=== PATIENT | female | born 1970 ===

== ENCOUNTER → 2016-11-14 | Outpatient (REF) ==
[~2016-11-14] MED LIST: DIFLUCAN 100MG100 MG PO; GEODON 40MG40 MG PO; KLONOPIN 0.5MG0.5 MG PO; LITHIUM 30300 MG/CAP PO; LUNESTA2 MG PO; NORCO 325 MG-51 TAB PO; OMNICEF 300MG300 MG PO; PROAIR HFA0.09 MG/AC IH; VIIBRYD20 MG PO
== END ==
LOC: ZLAB.WCH 14:56
DX: Z01.89 Encounter for other specified special examinations (principal)

== ENCOUNTER → 2017-06-16 | Outpatient (REF) ==
[2017-06-16 11:02] LABS: LITHIUM 0.6 mmol/L (0.6-1.2)
[2017-06-16 11:29] LABS: THYROID STIMULATING HORMONE 3.85 uIU/mL (0.465-4.680)
== END ==
LOC: ZLAB.WCH 10:33
PROVIDERS: Psychiatry & Neurology Psychiatry
DX: Z01.89 Encounter for other specified special examinations (principal)

== ENCOUNTER → 2017-06-21 | Outpatient (REF) | LOC: ZLAB.WCH 17:59 → ZCOL.LAB 17:59 | DX: Z01.89 Encounter for other specified special examinations (principal) ==

== ENCOUNTER → 2017-10-27 | Outpatient (REF) | LOC: ZLAB.WCH 19:14 | DX: Z01.89 Encounter for other specified special examinations (principal) ==

== ENCOUNTER → 2017-12-20 | Outpatient (REF) ==
[2017-12-20 18:47] LABS: THYROID STIMULATING HORMONE 3.9 uIU/mL (0.465-4.680)
== END ==
LOC: ZLAB.WCH 18:03
PROVIDERS: Nurse Practitioner Family
DX: Z01.89 Encounter for other specified special examinations (principal)

== ENCOUNTER → 2018-03-28 | Outpatient (REF) | LOC: ZLAB.WCH 15:55 | DX: Z01.89 Encounter for other specified special examinations (principal) ==

== ENCOUNTER → 2018-07-20 | Outpatient (REF) | LOC: ZLAB.WCH 15:49 | DX: Z01.89 Encounter for other specified special examinations (principal) ==

== ENCOUNTER → 2018-07-24 | Outpatient (REF) ==
[2018-07-24 09:51] LABS: THYROID STIMULATING HORMONE 3.05 uIU/mL (0.465-4.680)
== END ==
LOC: ZLAB.WCH 08:43
PROVIDERS: Psychiatry & Neurology Psychiatry
DX: Z01.89 Encounter for other specified special examinations (principal)

== ENCOUNTER → 2019-01-04 | Outpatient (REF) | LOC: ZLAB.WCH 15:47 | DX: Z01.89 Encounter for other specified special examinations (principal) ==

== ENCOUNTER → 2020-08-07 | Outpatient (CLI) | payer MEDICARE | LOC: COL.PUL 07-28 11:20 | DX: J44.9 Chronic obstructive pulmonary disease, unspecified (principal) ==

== ENCOUNTER → 2020-11-25 | Outpatient (REF) | LOC: ZLAB.WCH 17:04 | DX: Z01.89 Encounter for other specified special examinations (principal) ==

== ENCOUNTER 2021-03-07 17:43 | Inpatient (IN) | payer MEDICARE ==
[~2021-03-07] VITALS: Ht 175.3 cm; Wt 133.5 kg
[2021-03-07] VITALS (116 sets, daily range): BP systolic 155; BP diastolic 71; PULSE 104; TEMP 98.4; O2SAT 94–100
--- NOTE | 2021-03-07 18:00 | NUR ---
RECEIVED REPORT FROM LESLEY ZUNIGA IN [facility]. AWAITING ARRIVAL TO ICU 4.
--- NOTE | 2021-03-07 18:45 | NUR ---
PT ARRIVES WITH EMS BY STRETCHER TO ICU 4. PT AMBULATES SELF TO BATHROOM THEN TO ICU BED INDEPENDTLY. PLACED ON BEDSIDE CONTINUOUS MONITOR. VSS. CALL LIGHT WITHIN REACH. PT ON RA. DENIES ANY PAIN OR SHOB.
--- NOTE | 2021-03-07 19:05 | NUR ---
ELLIOT PANG AT BEDSIDE FOR ASSESSMENT.
[2021-03-07] MEDS ORDERED: LYRICA300 MG PO (19:39)
[2021-03-07] MEDS ORDERED: PRILOSEC 20MG20 MG PO (19:39)
[2021-03-07] MEDS ORDERED: WELLBUTRIN XL300 M1 PO (19:40)
[2021-03-07] MEDS ORDERED: WELLBUTRIN XL150 MG PO (19:40)
[2021-03-07] MEDS ORDERED: TOPAMAX 100MG100 M1 PO (19:40)
[2021-03-07] MEDS ORDERED: FLEXERIL 1010 MG/TAB PO (19:40)
[2021-03-07] MEDS ORDERED: 00186-0370-20 IH (19:40)
[2021-03-07] MEDS ORDERED: ELAVIL100 MG PO (19:41)
[2021-03-07] MEDS ORDERED: XANAX 1MG1 MG PO (19:42)
[2021-03-07] MEDS ORDERED: DITROPAN 5MG TAB5 MG PO (19:42)
[2021-03-07] MEDS ORDERED: DIPROLENE AF GEL15GM TP (19:43)
[2021-03-07] MEDS ORDERED: MOBIC15 MG PO (19:43)
[2021-03-07 20:18] LABS: COLLECTION METHOD CLEAN CATCH
[2021-03-07 20:24] LABS: PH 7 (5-8); SQUAMOUS EPITHELIAL 0-2 /hpf; URINE APPEARANCE Clear; URINE BACTERIA Rare /hpf; URINE BILIRUBIN Negative (NEGATIVE); URINE BLOOD Negative (NEGATIVE); URINE COLOR Yellow; URINE GLUCOSE 3+ (NEGATIVE); URINE KETONE Negative (NEGATIVE); URINE LEUKOCYTE ESTERASE Negative (NEGATIVE); URINE NITRATE Negative (NEGATIVE); URINE PROTEIN(semi-quant) Negative (NEGATIVE); URINE RBC 0-2 /hpf; URINE UROBILINOGEN Negative (NEGATIVE)
[2021-03-07 20:34] LABS: CALCIUM 8.7 mg/dL (8.4-10.2); CREATININE, serum 0.78 (0.52-1.25); POTASSIUM 4.2 mmol/L (3.4-5.0)
--- NOTE | 2021-03-07 21:00 | NUR ---
Assessment complete and charted. Denies needs. Orientated to ICU. All questions answered. Call light in reach.
[2021-03-07 23:48] LABS: CALCIUM 8.6 mg/dL (8.4-10.2); CREATININE, serum 0.66 (0.52-1.25); POTASSIUM 3.6 mmol/L (3.4-5.0)
[2021-03-08] VITALS (257 sets, daily range): BP systolic 108–146; BP diastolic 54–100; PULSE 84–105; TEMP 97.6–98.6; O2SAT 92–100
--- NOTE | 2021-03-08 | NUR ---
Resting in bed. Denies needs. Call light in reach.
[2021-03-08 03:53] LABS: BASO % 0.5 % (0.0-2.0); EOS # 0.2 (0.0-0.7); EOS % 3.3 % (0-4.0); GRAN # 3.2 (1.4-6.5); HEMATOCRIT 37.2 % (37.0-47.0); HEMOGLOBIN 11.8 g/dl (12.5-16.0); LYMPH # 1.8 (1.2-3.4); LYMPH % 29.7 % (20.0-51.0); MEAN CELL VOLUME 86 fl (80.0-100.0); MEAN CORPUSCULAR HEMOGLOBIN 27 pg (27.0-31.0); MEAN CORPUSCULAR HGB CONC 32 g/dl (33.0-37.0); MEAN PLATELET VOLUME 9.6 fl (7.4-10.4); MONO # 0.8 (0.1-0.6); MONO % 13.2 % (1.7-9.3); PLATELET COUNT 176 K/mm3 (130-400); RED BLOOD COUNT 4.31 M/mm3 (4.10-5.30); REDCELL DISTRIBUTION WIDTH-CV 17.2 % (11.5-14.5)
[2021-03-08 04:08] LABS: CALCIUM 8.3 mg/dL (8.4-10.2); CREATININE, serum 0.69 (0.52-1.25); POTASSIUM 3.9 mmol/L (3.4-5.0)
--- NOTE | 2021-03-08 07:00 | NUR ---
RECEIVED REPORT FROM LESLEY BRADSHAW. PT UP TO TOILET INDEPENDENTLY. BACK TO BED. VSS. CALL LIGHT WITHIN REACH.
[2021-03-08 07:19] LABS: CALCIUM 8.5 mg/dL (8.4-10.2); CREATININE, serum 0.64 (0.52-1.25); POTASSIUM 3.4 mmol/L (3.4-5.0)
--- NOTE | 2021-03-08 07:26 | NUR ---
Patient had uneventful night. Resting in bed this AM. Call light in reach.
--- NOTE | 2021-03-08 07:27 | NUR ---
Report given to LESLEY Jarrell
--- NOTE | 2021-03-08 09:14 | NUR ---
Initial visit; Patient thanked Steel Manager for looking in on her and offering encouragement and prayer.
--- NOTE | 2021-03-08 10:55 | NUR ---
Log Stacker Operator attended clinical rounds with the team and patient to transfer to the floor. SW met with patient to discuss discharge planning. Patient lives in [place] with her eighteen year old daughter, Rola. Patient sees Dr. Roman for primary care and obtains medications from [place] [facility]. Patient states she normally can afford her medications but is concerned about purchasing a blood glucose monitor and discharge medications. Patient has a cane she uses as needed as well as a shower chair. Patient advised she is independent with ADLS and plans to return home upon discharge. Patient does not have Advance Directives and did not want to designate DPOA-HC at this time. Patient's legal next of kin would be her daughter, Rola as patient is not . Patient also has her father, David (ph#[phone]) listed as a contact. SW consulted Marisa, Financial Counselor to inquire if patient would qualify for Medicaid. Discharge Plan: Home, may need medication assistance.
--- NOTE | 2021-03-08 10:59 | NUR ---
REPORT GIVEN TO LESLEY LEY ON [facility]. PT TO TRANSFER TO [facility] VIA ON RA. ALL PERSONAL BELONGINGS SENT WITH PT.
--- NOTE | 2021-03-08 14:00 | NUR ---
Pt arrived to floor at this time with ICU staff. In bed resting, denies needs, will continue to monitor.
--- NOTE | 2021-03-08 18:02 | NUR ---
Pt has done well since arriving to floor. REsted off and on this afternoon. PRN order received for Imitrex per pt request for migraine headache. Education provided in printed format on ADA diet, DM2 care and monitoring and Sliding Scale insulin regminens. Pt educated and demonstration provided for accuchecks and administering insulin. IVF to LA/C. Will give bedside shift erport to nightshift nurse who will resume care.
--- NOTE | 2021-03-08 22:46 | NUR ---
Patient laying in bed upon enter the room. Patient A/Ox4. Patient denies any pain or discomfort. Denies SOB, dyspnea, N/V, dizziness, or headache. Patient states that she is feeling very tired today. IVF running per MAR. All scheduled meds given per MAR. Call light within reach. Patient denies any needs at this time.
[2021-03-09 00:09] VITALS: BP 133/78; PULSE 101; TEMP 98.5
[2021-03-09 03:54] VITALS: BP 134/81; PULSE 96; TEMP 98.8
--- NOTE | 2021-03-09 07:10 | NUR ---
Bedside report recieved from LESLEY Jiménez. Patient resting in bed at this time. Lab in to draw blood. NS running as ordered. Patient denies any pain, discomfort, or futher needs at this time. Will continue to monitor. Call light in reach.
[2021-03-09 07:47] LABS: CALCIUM 8.6 mg/dL (8.4-10.2); CREATININE, serum 0.68 (0.52-1.25); POTASSIUM 3.5 mmol/L (3.4-5.0)
[2021-03-09 08:19] VITALS: BP 119/73; PULSE 105; TEMP 97.8
--- NOTE | 2021-03-09 10:00 | NUR ---
Scheduled medications given. Assessments preformed. Patient teaching completed regarding insulin and how to self administer. Patient verbalized an understanding of the teaching and was able to administer insulin independently. Patient denies any pain, discomfort, or futher needs at this time. Will continue to monitor. NS running as ordered.
[2021-03-09] MEDS ORDERED: HUMULIN 70/30 PE3 ML SQ (10:24)
[2021-03-09] MEDS ORDERED: FREESTYLE PREC1 EAC5 MC (10:25)
[2021-03-09] MEDS ORDERED: GLUCOSE TEST ST1 DEV MC ×2 (10:26→11:32)
[2021-03-09] MEDS ORDERED: THE MEDICINE SH1 DE3 MC (10:27)
[2021-03-09] MEDS ORDERED: BD ALCOHOL1 SWA TD (10:28)
[2021-03-09 11:41] VITALS: BP 125/88; PULSE 108; TEMP 97.9
[2021-03-09] MEDS ORDERED: NOVOLIN 70100 UNIT/2 SQ (11:52)
--- NOTE | 2021-03-09 12:53 | NUR ---
Discharge education given. Patient verbalized an understanding of the education. This RN informed her of her resources if any questions were to arise. IV DC's, catheter intact, no signs of phlebitis. VSS. Patient escorted from building by [facility] Staff via wheelchair.
--- NOTE | 2021-03-23 12:20 | NUR ---
(late entry 03/09/21) The patient discharged home with her daughter. The patient was requiring some assistance with medications and supplies. provided a med voucher to [facility] for the patient for $31.37. There are no additional needs.
[2021-05-11] MEDS ORDERED: GLUCOPHAGE500 MG/TAB PO (08:57)
[2021-05-11] MEDS ORDERED: FLEXERIL 1010 MG/TAB PO (08:58)
[2021-05-11] MEDS ORDERED: IMITREX100 MG PO (09:00)
[2021-05-11] MEDS ORDERED: PROVENTIL0.09 MG/A1 IH (09:00)
== END 2021-03-09 12:57 | disposition home or self-care (01) | DRG 638 ==
LOC: ICU 17:43 → MEDICAL 03-08 12:00
PROVIDERS: Student in an Organized Health Care Education/Training Program; ADMIT Internal Medicine
DX: E11.00 Type 2 diabetes mellitus with hyperosmolarity without nonketotic hyperglycemic-hyperosmolar coma (NKHHC) (principal); Z68.41 Body mass index [BMI] 40.0-44.9, adult; B19.20 Unspecified viral hepatitis C without hepatic coma; R32 Unspecified urinary incontinence; K21.9 Gastro-esophageal reflux disease without esophagitis; M79.7 Fibromyalgia; G43.909 Migraine, unspecified, not intractable, without status migrainosus; E87.6 Hypokalemia; J44.9 Chronic obstructive pulmonary disease, unspecified; F41.9 Anxiety disorder, unspecified; E87.8 Other disorders of electrolyte and fluid balance, not elsewhere classified; F31.9 Bipolar disorder, unspecified; E66.9 Obesity, unspecified
CPT/HCPCS: 99223-AI; 99233-AI; 99238; J1644; J1815; J7030

== ENCOUNTER → 2021-05-12 | Outpatient (CLI) | payer MEDICARE ==
[~2021-05-12] VITALS: Ht 175.3 cm; Wt 123.4 kg
[2021-05-12] VITALS (14 sets, daily range): BP systolic 115–169; BP diastolic 78–110; PULSE 101–116
[~2021-05-12] MED LIST changes: +00186-0370-20 IH; +BD ALCOHOL1 SWA TD; +DIPROLENE AF GEL15GM TP; +DITROPAN 5MG TAB5 MG PO; +ELAVIL100 MG PO; +FLEXERIL 1010 MG/TAB PO; +FREESTYLE PREC1 EAC5 MC; +GLUCOPHAGE500 MG/TAB PO; +GLUCOSE TEST ST1 DEV MC; +HUMULIN 70/30 PE3 ML SQ; +IMITREX100 MG PO; +LYRICA300 MG PO; +MOBIC15 MG PO; +NOVOLIN 70100 UNIT/2 SQ; +PRILOSEC 20MG20 MG PO; +PROVENTIL0.09 MG/A1 IH; +THE MEDICINE SH1 DE3 MC; +TOPAMAX 100MG100 M1 PO; +WELLBUTRIN XL150 MG PO; +WELLBUTRIN XL300 M1 PO; +XANAX 1MG1 MG PO
--- NOTE | 2021-05-12 13:20 | NUR ---
PT BROUGHT INTO CT, PLACED ON TABLE. MONITORING EQUIPMENT PLACED
== END ==
LOC: COL.RAD 12:11
DX: R59.0 Localized enlarged lymph nodes (principal); Z98.890 Other specified postprocedural states
CPT/HCPCS: 32106

== ENCOUNTER → 2022-06-20 | Outpatient (CLI) | payer MEDICARE | LOC: COL.RAD 09:45 | DX: K82.8 Other specified diseases of gallbladder (principal) | CPT/HCPCS: A9537 ==

== ENCOUNTER → 2022-12-12 | Outpatient (REF) | LOC: COL.CARD 15:03 | DX: R00.2 Palpitations (principal) ==

== ENCOUNTER → 2024-04-24 | Outpatient (CLI) | payer MEDICARE, MEDICAID | LOC: COL.RAD 10:53 | DX: R22.32 Localized swelling, mass and lump, left upper limb (principal) ==